=== PATIENT | male | born 1985 | race Caucasian/White ===

== ENCOUNTER 2025-05-26 18:27 | Emergency (ER) | payer OTHER ==
[2025-05-26] MEDS ORDERED: Sodium Chloride 0.9% 10 ML Syringe FLUSH PRN (18:55)
[2025-05-26 20:04] LABS: MEAN PLATELET VOLUME 9.9 fL (6.0-10.0); PLATELET COUNT,PLT 212.0 K/uL (150-400); RED BLOOD CELL COUNT 5.28 M/uL (4.50-6.50); RED CELL DISTRIBUTION WIDTH 13.0 % (11.0-16.0); WHITE BLOOD CELL COUNT,WBC 6.1 K/uL (4.0-11.0)
[2025-05-26 20:18] LABS: BLOOD UREA NITROGEN,BUN 14 mg/dL (8-26); CARBON DIOXIDE,CO2 29.1 mmol/L (21.0-32.0); CHLORIDE,CL 108 mmol/L (98-107); CREATININE 0.93 mg/dL (0.70-1.30); EST CRCL DRUG DOSING (CG) 122.76 mL/min; ESTIMATED GFR 106 mL/min (>60); GLUCOSE RANDOM 126 mg/dL (74-100); POTASSIUM,K 3.9 mmol/L (3.5-5.1); SODIUM,NA 142 mmol/L (136-145)
[2025-05-26 20:21] LABS: TROPONIN I HIGH SENSITIVITY < 4.0 pg/ml (<=60.4)
== END 2025-05-26 22:25 | disposition home or self-care (01) ==
LOC: LB.ED 18:27
DX: R00.0 Tachycardia, unspecified (principal); E86.0 Dehydration; Z79.899 Other long term (current) drug therapy; Z88.6 Allergy status to analgesic agent
CPT/HCPCS: 36415; 80048; 83735; 84443; 84484; 85027; 85379; 93005; 96360; 96361; 99285; J7030